=== PATIENT | female | born 1995 | race Caucasian/White ===

== ENCOUNTER 2017-10-14 19:18 | Inpatient (IN) | payer OTHER, MEDICAID ==
[~2017-10-14] VITALS: Ht 160 cm; Wt 54.4 kg
[2017-10-14] MEDS ORDERED: MORPHINE SULFATE 4 MG/ML CPJ (NOT FOR IM USE) IV STA (23:26)
[2017-10-14] MEDS ORDERED: SODIUM CHLORIDE 0.9% 1,000 ML IV ONE (23:26)
[2017-10-14] MEDS ORDERED: FAMOTIDINE 20MG/2ML VIAL IV STA (23:26)
[2017-10-14] MEDS ORDERED: PANTOPRAZOLE SODIUM 40 MG/VIAL IV STA (23:26)
[2017-10-14] MEDS ORDERED: ONDANSETRON HCL 4MG/2ML VIAL IV STA (23:26)
[2017-10-14] MEDS ORDERED: OCTREOTIDE ACETATE 50 MCG/ML 1ML IV ONE (23:30)
[2017-10-14 23:44] LABS: BASOPHILS % 1.1 % (0.0-2.0); EOSINOPHILS % 0.2 % (0.0-5.0); HEMOGLOBIN. 11.7 g/dL (12.0-16.0); MEAN CORPUSCULAR HEMOGLOBIN 27.8 pg (28.0-32.0); MEAN CORPUSCULAR VOLUME 83.1 fL (81.0-99.0); MEAN PLATELET VOLUME 7.3 fl (7.4-10.4); MONOCYTES % 13.4 % (2.0-8.0); NEUTROPHILS % 53.3 % (40.0-76.0); PLATELET 308 x1000/uL (130-400); RED BLOOD CELL COUNT 4.22 mill/uL (4.2-5.4); RED CELL DISTRIBUTION WIDTH 15.2 % (11.6-14.6)
[2017-10-14 23:49] LABS: INR 1.3; PROTHROMBIN TIME 13.1 sec (9.4-11.6)
[2017-10-15 00:06] LABS: CARBON DIOXIDE 26 mEq/L (21-32); CHLORIDE 99 mEq/L (98-107); ETHANOL BLOOD < 10 mg/dL
[2017-10-15 00:07] LABS: CLARITY URINE CLOUDY (CLEAR); COLOR URINE DARK YELLOW (YELLOW); KETONES URINE TRACE (NEGATIVE); LEUKOCYTE ESTERASE URINE 1+ (NEGATIVE); NITRITE URINE NEGATIVE (NEGATIVE); OCCULT BLOOD URINE 1+ (NEGATIVE); PH URINE 5.5 (4.5-8.0); PROTEIN URINE 2+ (NEGATIVE); SPECIFIC GRAVITY URINE 1.034 (1.005-1.030)
[2017-10-15 00:40] LABS: *AMPHETAMINES SCREEN URINE NEGATIVE (NEGATIVE); *BARBITURATES SCREEN URINE NEGATIVE (NEGATIVE); *BENZODIAZEPINES SCREEN URINE NEGATIVE (NEGATIVE); *COCAINE SCREEN URINE NEGATIVE (NEGATIVE); CANNABINOID URINE SCREEN NEGATIVE (NEGATIVE); METHADONE URINE SCREEN NEGATIVE (NEGATIVE); OPIATES URINE SCREEN NEGATIVE (NEGATIVE); PHENCYCLIDINE URINE SCREEN NEGATIVE (NEGATIVE)
[2017-10-15] MEDS ORDERED: ACETAMINOPHEN 325MG TABLET PO NR (02:13)
[2017-10-15] MEDS ORDERED: METRONIDAZOLE 500 MG PREMIX 100 ML IV NR (02:15)
[2017-10-15] MEDS ORDERED: SODIUM CHLORIDE 0.9% 1000ML BAG (SEPSIS BOLUS) IV NR (02:15)
[2017-10-15] MEDS ORDERED: LEVOFLOXACIN 750MG PREMIX 150 ML IV NR (02:15)
[2017-10-15] MEDS ORDERED: MORPHINE SULFATE 2 MG/ML CPJ (NOT FOR IM USE) IV STA ×2 (06:32→06:43)
[2017-10-15] MEDS ORDERED: ONDANSETRON HCL 4MG/2ML VIAL IV STA (06:43)
[2017-10-15] MEDS ORDERED: DIPHENHYDRAMINE 50MG/ML VIAL IV STA (06:43)
[2017-10-15] MEDS ORDERED: CLONIDINE 0.1MG TABLET PO PRN (09:15)
[2017-10-15] MEDS ORDERED: ONDANSETRON HCL 4MG/2ML VIAL IV PRN (09:15)
[2017-10-15] MEDS ORDERED: ACETAMINOPHEN 325MG TABLET PO PRN (09:15)
[2017-10-15] MEDS ORDERED: LORAZEPAM 2MG/ML CPJ IV PRN (09:15)
[2017-10-15] MEDS ORDERED: MAGNESIUM/ALUMINUM HYDROXIDE/SIMETHICONE 30ML UDC PO PRN (09:15)
[2017-10-15 10:00] VITALS: BP_SYST 98; BP_DIAS 53; BP_DIAS 60
[2017-10-15] MEDS ORDERED: PRED10TA23 PO (10:14)
[2017-10-15] MEDS ORDERED: ENOXAPARIN 40MG/0.4ML SYR SUBCUT SCH (10:15)
[2017-10-15] MEDS ORDERED: METHYLPREDNISOLONE SOD SUCC 40 MG/ML VIAL IV SCH (10:30)
[2017-10-15] MEDS: HYDROMORPHONE HCL/PF 2MG/ML CPJ IV PRN ×3 (10:55→20:06)
[2017-10-15 12:00] VITALS: BP 106/61
[2017-10-15] MEDS: DEXT 5%/0.45% NACL KCL 20MEQ/L 1,000 ML IV SCH (12:28)
[2017-10-15] MEDS: MESALAMINE 400 MG CAPSULE.DR PO SCH ×2 (12:29→22:33)
[2017-10-15 16:51] VITALS: BP 107/66
[2017-10-15 19:50] LABS: CLARITY URINE CLEAR (CLEAR); COLOR URINE YELLOW (YELLOW); KETONES URINE NEGATIVE (NEGATIVE); LEUKOCYTE ESTERASE URINE 2+ (NEGATIVE); NITRITE URINE NEGATIVE (NEGATIVE); OCCULT BLOOD URINE NEGATIVE (NEGATIVE); PH URINE 5.5 (4.5-8.0); PROTEIN URINE NEGATIVE (NEGATIVE); SPECIFIC GRAVITY URINE 1.013 (1.005-1.030); UROBILINOGEN URINE 0.2 E.U./dL (0.2-1.0)
[2017-10-15 20:00] VITALS: BP 102/58
[2017-10-15 20:44] LABS: *AMPHETAMINES SCREEN URINE NEGATIVE (NEGATIVE); *BARBITURATES SCREEN URINE NEGATIVE (NEGATIVE); *BENZODIAZEPINES SCREEN URINE NEGATIVE (NEGATIVE); *COCAINE SCREEN URINE NEGATIVE (NEGATIVE); CANNABINOID URINE SCREEN NEGATIVE (NEGATIVE); METHADONE URINE SCREEN NEGATIVE (NEGATIVE); PHENCYCLIDINE URINE SCREEN NEGATIVE (NEGATIVE)
[2017-10-15 20:49] LABS: OPIATES URINE SCREEN PRESUMTIVE POSITIVE (NEGATIVE)
[2017-10-15] MEDS: METHYLPREDNISOLONE SOD SUCC 40 MG/ML VIAL IV SCH (22:32)
[2017-10-15] MEDS ORDERED: LEVOFLOXACIN 500MG PREMIX 100 ML IV SCH (23:00)
[2017-10-16] VITALS: BP 105/58
[2017-10-16] MEDS: HYDROMORPHONE HCL/PF 2MG/ML CPJ IV PRN ×3 (00:15→08:19)
[2017-10-16] MEDS: DEXT 5%/0.45% NACL KCL 20MEQ/L 1,000 ML IV SCH (00:17)
[2017-10-16 04:00] VITALS: BP 118/76
[2017-10-16] MEDS: MESALAMINE 400 MG CAPSULE.DR PO SCH (05:29)
[2017-10-16] MEDS: METHYLPREDNISOLONE SOD SUCC 40 MG/ML VIAL IV SCH (05:29)
[2017-10-16 06:54] LABS: BASOPHILS % 0.1 % (0.0-2.0); HEMOGLOBIN. 11.8 g/dL (12.0-16.0); LYMPHOCYTES % 13.3 % (20.0-50.0); MEAN CORPUSCULAR HEMOGLOBIN 28.5 pg (28.0-32.0); MEAN CORPUSCULAR VOLUME 84.6 fL (81.0-99.0); MEAN PLATELET VOLUME 7.8 fl (7.4-10.4); MONOCYTES % 4.4 % (2.0-8.0); NEUTROPHILS % 82.2 % (40.0-76.0); PLATELET 332 x1000/uL (130-400); RED BLOOD CELL COUNT 4.13 mill/uL (4.2-5.4); RED CELL DISTRIBUTION WIDTH 15.3 % (11.6-14.6)
[2017-10-16 07:56] LABS: CARBON DIOXIDE 27 mEq/L (21-32); CHLORIDE 101 mEq/L (98-107)
[2017-10-16 08:00] VITALS: BP 114/70
[2017-10-16] MEDS ORDERED: PANTOPRAZOLE SODIUM 40 MG/VIAL IV SCH (09:00)
[2017-10-16 11:19] VITALS: BP 117/78
[2017-10-16 11:26] VITALS: BP 116/74
== END 2017-10-16 13:35 | disposition home or self-care (01) | DRG 386 ==
LOC: ER 20:18 → 8WST 10-15 02:19 → EDBEDREQSVC 10-15 03:55 → EDBEDREQTM 10-15 03:55 → EDBEDREQ 10-15 03:55 → ENRESERV 10-15 07:00 → CANBEDREQ 10-15 09:02
PROVIDERS: ADMIT Internal Medicine Geriatric Medicine; ATTEND Internal Medicine Geriatric Medicine
DX: K51.00 Ulcerative (chronic) pancolitis without complications (principal); E87.1 Hypo-osmolality and hyponatremia; N39.0 Urinary tract infection, site not specified; K92.2 Gastrointestinal hemorrhage, unspecified; D64.9 Anemia, unspecified
CPT/HCPCS: 36415; 74176; 80053; 80305; 81001; 81003; 83605; 83690; 85025; 85610; 85651; 86141; 87040; 87086; 96361; 96365; 96366; 96375; 96376; 99285; C9113; G0482; J1170; J1200; J1650; J1956; J2270; J2354; J2405; J2920; J3490; J7030

== ENCOUNTER 2017-11-01 12:38 | Inpatient (IN) | payer OTHER, MEDICAID ==
[~2017-11-01] VITALS: Ht 162.6 cm; Wt 59.0 kg
[~2017-11-01 12:38] MED LIST: PRED10TA23 PO
[2017-11-01] MEDS ORDERED: MORPHINE SULFATE 4 MG/ML CPJ (NOT FOR IM USE) IV STA (17:13)
[2017-11-01] MEDS ORDERED: SODIUM CHLORIDE 0.9% 1,000 ML IV ONE (17:13)
[2017-11-01] MEDS ORDERED: ONDANSETRON HCL 4MG/2ML VIAL IV STA (17:13)
[2017-11-01 17:55] LABS: HCG SCREEN NEGATIVE
[2017-11-01 17:58] LABS: EOSINOPHILS % 1.1 % (0.0-5.0); HEMATOCRIT. 33.8 % (36.0-48.0); HEMOGLOBIN. 11.2 g/dL (12.0-16.0); LYMPHOCYTES % 17.7 % (20.0-50.0); MEAN CORPUSCULAR VOLUME 84.1 fL (81.0-99.0); MEAN PLATELET VOLUME 7.1 fl (7.4-10.4); MONOCYTES % 7.1 % (2.0-8.0); NEUTROPHILS % 73.1 % (40.0-76.0); PLATELET 463 x1000/uL (130-400); RED BLOOD CELL COUNT 4.02 mill/uL (4.2-5.4); RED CELL DISTRIBUTION WIDTH 16.6 % (11.6-14.6)
[2017-11-01 18:01] LABS: CARBON DIOXIDE 33 mEq/L (21-32); CHLORIDE 102 mEq/L (98-107)
[2017-11-01 19:20] LABS: CLARITY URINE TURBID (CLEAR); COLOR URINE ORANGE (YELLOW); KETONES URINE NEGATIVE (NEGATIVE); LEUKOCYTE ESTERASE URINE NEGATIVE (NEGATIVE); NITRITE URINE NEGATIVE (NEGATIVE); OCCULT BLOOD URINE 1+ (NEGATIVE); PROTEIN URINE TRACE (NEGATIVE); SPECIFIC GRAVITY URINE 1.028 (1.005-1.030)
[2017-11-01] MEDS ORDERED: IOHEXOL-300 100 ML BOTTLE ONE (21:05)
[2017-11-01] MEDS ORDERED: MORPHINE SULFATE 4 MG/ML CPJ (NOT FOR IM USE) IV ONE (22:00)
[2017-11-01] MEDS ORDERED: ONDANSETRON HCL 4MG/2ML VIAL IV ONE (22:00)
[2017-11-01] MEDS ORDERED: CEFTRIAXONE 1 G PREMIX 50 ML IV ONE (22:15)
[2017-11-02] VITALS (8 sets, daily range): BP systolic 88–121; BP diastolic 44–79
[2017-11-02] MEDS ORDERED: ONDANSETRON HCL 4MG/2ML VIAL IV PRN (05:45)
[2017-11-02] MEDS ORDERED: ACETAMINOPHEN 325MG TABLET PO PRN (06:00)
[2017-11-02] MEDS ORDERED: POTASSIUM CHLORIDE 20MEQ TABLET SR PO NR (06:00)
[2017-11-02] MEDS: MESALAMINE 400 MG CAPSULE.DR PO SCH ×3 (06:56→18:16)
[2017-11-02] MEDS: DEXT 5%/0.45% NACL 1000ML 1,000 ML IV SCH (06:56)
[2017-11-02] MEDS ORDERED: SODIUM CHLORIDE 0.9% 500 ML IV ONE (09:11)
[2017-11-02] MEDS: PANTOPRAZOLE SODIUM 40 MG/VIAL IV SCH (09:59)
[2017-11-02] MEDS: METRONIDAZOLE 500 MG PREMIX 100 ML IV SCH ×3 (11:34→23:08)
[2017-11-02] MEDS: LEVOFLOXACIN 500MG PREMIX 100 ML IV SCH (12:36)
[2017-11-02] MEDS: HYDROMORPHONE HCL/PF 2MG/ML CPJ IV PRN ×3 (14:48→23:04)
[2017-11-02] MEDS: METHYLPREDNISOLONE SOD SUCC 40 MG/ML VIAL IV SCH ×2 (16:38→23:08)
[2017-11-03] MEDS: HYDROMORPHONE HCL/PF 2MG/ML CPJ IV PRN ×4 (01:52→20:12)
[2017-11-03 04:00] VITALS: BP 95/48
[2017-11-03] MEDS: DEXT 5%/0.45% NACL 1000ML 1,000 ML IV SCH ×3 (05:14→21:15)
[2017-11-03 06:19] LABS: HEMATOCRIT. 30.1 % (36.0-48.0); MEAN CORPUSCULAR HEMOGLOBIN 28.1 pg (28.0-32.0); MEAN CORPUSCULAR VOLUME 84.7 fL (81.0-99.0); MEAN PLATELET VOLUME 7.7 fl (7.4-10.4); PLATELET 347 x1000/uL (130-400); RED BLOOD CELL COUNT 3.56 mill/uL (4.2-5.4); RED CELL DISTRIBUTION WIDTH 15.6 % (11.6-14.6)
[2017-11-03 06:50] LABS: CARBON DIOXIDE 25 mEq/L (21-32); CHLORIDE 103 mEq/L (98-107)
[2017-11-03 08:00] VITALS: BP 115/73
[2017-11-03] MEDS: METRONIDAZOLE 500 MG PREMIX 100 ML IV SCH ×2 (08:14→16:35)
[2017-11-03] MEDS: PANTOPRAZOLE SODIUM 40 MG/VIAL IV SCH (08:15)
[2017-11-03] MEDS: METHYLPREDNISOLONE SOD SUCC 40 MG/ML VIAL IV SCH ×2 (08:15→16:33)
[2017-11-03] MEDS: MESALAMINE 400 MG CAPSULE.DR PO SCH ×3 (08:22→16:34)
[2017-11-03] MEDS: LEVOFLOXACIN 500MG PREMIX 100 ML IV SCH (09:45)
[2017-11-03 09:58] LABS: PLATELET ESTIMATE NORMAL
[2017-11-03 12:00] VITALS: BP 101/61
[2017-11-03] MEDS ORDERED: TRAMADOL 50MG TABLET PO PRN (15:00)
[2017-11-03 16:00] VITALS: BP 102/62
[2017-11-03 20:00] VITALS: BP 112/52
[2017-11-04] VITALS: BP 108/59
[2017-11-04] MEDS: METHYLPREDNISOLONE SOD SUCC 40 MG/ML VIAL IV SCH ×2 (00:08→10:24)
[2017-11-04] MEDS: METRONIDAZOLE 500 MG PREMIX 100 ML IV SCH ×2 (00:08→10:24)
[2017-11-04 04:00] VITALS: BP 114/73
[2017-11-04] MEDS: DEXT 5%/0.45% NACL 1000ML 1,000 ML IV SCH (04:00)
[2017-11-04] MEDS: HYDROMORPHONE HCL/PF 2MG/ML CPJ IV PRN ×2 (04:08→11:32)
[2017-11-04 08:00] VITALS: BP 106/63
[2017-11-04] MEDS: MESALAMINE 400 MG CAPSULE.DR PO SCH (10:25)
[2017-11-04] MEDS: PANTOPRAZOLE SODIUM 40 MG/VIAL IV SCH (10:25)
[2017-11-04] MEDS: LEVOFLOXACIN 500MG PREMIX 100 ML IV SCH (10:25)
[2017-11-04 12:00] VITALS: BP 102/55
[2017-11-04 13:16] VITALS: BP 18/102
== END 2017-11-04 13:53 | disposition home or self-care (01) | DRG 387 ==
LOC: ER 15:02 → 6EST 22:06 → EDBEDREQ 22:32 → ENRESERV 11-02 00:49
PROVIDERS: ADMIT Hospitalist; ATTEND Hospitalist
DX: K51.90 Ulcerative colitis, unspecified, without complications (principal); E88.09 Other disorders of plasma-protein metabolism, not elsewhere classified; K76.0 Fatty (change of) liver, not elsewhere classified; E87.6 Hypokalemia; R74.0 Nonspecific elevation of levels of transaminase and lactic acid dehydrogenase [LDH]; K83.8 Other specified diseases of biliary tract
CPT/HCPCS: 36415; 74177; 74181; 76700; 80053; 81001; 83690; 84703; 85025; 86301; 96365; 96375; 99285; C1893; C9113; J0696; J1170; J1956; J2270; J2405; J2920; J3490; J7030; J7040; Q9967

== ENCOUNTER 2017-11-29 19:16 | Inpatient (IN) | payer OTHER, MEDICAID ==
[~2017-11-29] VITALS: Ht 162.6 cm; Wt 59.0 kg
[2017-11-29] MEDS ORDERED: LEVOFLOXACIN 750MG PREMIX 150 ML IV ONE (23:15)
[2017-11-29] MEDS ORDERED: METRONIDAZOLE 500 MG PREMIX 100 ML IV ONE (23:15)
[2017-11-29] MEDS ORDERED: SODIUM CHLORIDE 0.9% 1000ML BAG (SEPSIS BOLUS) IV ONE (23:15)
[2017-11-29] MEDS ORDERED: KETOROLAC 30MG/ML VIAL IV ONE (23:30)
[2017-11-29] MEDS ORDERED: ONDANSETRON HCL 4MG/2ML VIAL IM ONE (23:30)
[2017-11-30 00:40] LABS: BASOPHILS % 1.3 % (0.0-2.0); EOSINOPHILS % 1.9 % (0.0-5.0); HEMATOCRIT. 29.8 % (36.0-48.0); HEMOGLOBIN. 9.7 g/dL (12.0-16.0); MEAN CORPUSCULAR HEMOGLOBIN 27.2 pg (28.0-32.0); MEAN CORPUSCULAR VOLUME 83.6 fL (81.0-99.0); MEAN PLATELET VOLUME 7.3 fl (7.4-10.4); MONOCYTES % 13.1 % (2.0-8.0); NEUTROPHILS % 49.7 % (40.0-76.0); PLATELET 376 x1000/uL (130-400); RED BLOOD CELL COUNT 3.56 mill/uL (4.2-5.4); RED CELL DISTRIBUTION WIDTH 16.9 % (11.6-14.6)
[2017-11-30 00:43] LABS: CHLORIDE 108 mEq/L (98-107)
[2017-11-30 00:44] LABS: INR 1.1; PROTHROMBIN TIME 11.1 sec (9.4-11.6)
[2017-11-30 00:51] LABS: CARBON DIOXIDE 28 mEq/L (21-32); ETHANOL BLOOD < 10 mg/dL
[2017-11-30] MEDS ORDERED: MORPHINE SULFATE 4 MG/ML CPJ (NOT FOR IM USE) IV NR (01:00)
[2017-11-30 01:30] LABS: CLARITY URINE TURBID (CLEAR); COLOR URINE YELLOW (YELLOW); KETONES URINE NEGATIVE (NEGATIVE); LEUKOCYTE ESTERASE URINE 2+ (NEGATIVE); NITRITE URINE NEGATIVE (NEGATIVE); OCCULT BLOOD URINE TRACE (NEGATIVE); PROTEIN URINE NEGATIVE (NEGATIVE); SPECIFIC GRAVITY URINE 1.029 (1.005-1.030); UROBILINOGEN URINE 0.2 E.U./dL (0.2-1.0)
[2017-11-30 01:58] LABS: *AMPHETAMINES SCREEN URINE NEGATIVE (NEGATIVE); *BARBITURATES SCREEN URINE NEGATIVE (NEGATIVE); *BENZODIAZEPINES SCREEN URINE NEGATIVE (NEGATIVE); *COCAINE SCREEN URINE NEGATIVE (NEGATIVE); CANNABINOID URINE SCREEN NEGATIVE (NEGATIVE); METHADONE URINE SCREEN NEGATIVE (NEGATIVE); OPIATES URINE SCREEN NEGATIVE (NEGATIVE); PHENCYCLIDINE URINE SCREEN NEGATIVE (NEGATIVE)
[2017-11-30] MEDS ORDERED: SODIUM CHLORIDE 0.9% 1,000 ML IV SCH (02:27)
[2017-11-30] MEDS ORDERED: MAGNESIUM/ALUMINUM HYDROXIDE/SIMETHICONE 30ML UDC PO ONE (04:30)
[2017-11-30] MEDS ORDERED: MORPHINE SULFATE 2 MG/ML CPJ (NOT FOR IM USE) IV ONE (04:30)
[2017-11-30] MEDS ORDERED: FAMOTIDINE 20MG/2ML VIAL IV ONE (04:30)
[2017-11-30 10:30] VITALS: BP_SYST 107; BP_DIAS 64; BP_DIAS 67
[2017-11-30] MEDS ORDERED: ACETAMINOPHEN 325MG TABLET PO PRN (13:15)
[2017-11-30] MEDS ORDERED: IPRATROPIUM/ALBUTEROL 0.5-3(2.5)MG/3ML NEB INH PRN (13:15)
[2017-11-30] MEDS ORDERED: ONDANSETRON HCL 4MG/2ML VIAL IV PRN (13:15)
[2017-11-30] MEDS ORDERED: CLONIDINE 0.1MG TABLET PO PRN (13:15)
[2017-11-30] MEDS ORDERED: HYDROCODONE/ACETAMINOPHEN 5/325MG TABLET PO PRN (13:15)
[2017-11-30] MEDS: MORPHINE SULFATE 2 MG/ML CPJ (NOT FOR IM USE) IV PRN ×3 (14:10→22:08)
[2017-11-30 16:00] VITALS: BP 101/67
[2017-11-30] MEDS: METHYLPREDNISOLONE SOD SUCC 40 MG/ML VIAL IV SCH ×2 (17:29→23:36)
[2017-11-30] MEDS: MESALAMINE 400 MG CAPSULE.DR PO SCH (17:29)
[2017-11-30 20:00] VITALS: BP 123/60
[2017-12-01 00:04] VITALS: BP 114/48
[2017-12-01] MEDS: MORPHINE SULFATE 2 MG/ML CPJ (NOT FOR IM USE) IV PRN ×5 (01:59→22:55)
[2017-12-01 04:13] VITALS: BP 113/63
[2017-12-01 07:20] LABS: BASOPHILS % 0.1 % (0.0-2.0); HEMATOCRIT. 31.4 % (36.0-48.0); HEMOGLOBIN. 10.5 g/dL (12.0-16.0); LYMPHOCYTES % 11.4 % (20.0-50.0); MEAN CORPUSCULAR HEMOGLOBIN 28.4 pg (28.0-32.0); MEAN CORPUSCULAR VOLUME 84.6 fL (81.0-99.0); MEAN PLATELET VOLUME 7.7 fl (7.4-10.4); MONOCYTES % 1.3 % (2.0-8.0); NEUTROPHILS % 87.2 % (40.0-76.0); PLATELET 424 x1000/uL (130-400); RED BLOOD CELL COUNT 3.71 mill/uL (4.2-5.4); RED CELL DISTRIBUTION WIDTH 16.5 % (11.6-14.6)
[2017-12-01 07:40] LABS: CHLORIDE 104 mEq/L (98-107); LDL CHOLESTEROL 69 mg/dL (5-100)
[2017-12-01 07:41] LABS: HDL CHOLESTEROL 56 mg/dL (40-59)
[2017-12-01 07:42] VITALS: BP 98/56
[2017-12-01] MEDS: METHYLPREDNISOLONE SOD SUCC 40 MG/ML VIAL IV SCH ×3 (08:00→22:54)
[2017-12-01] MEDS: MESALAMINE 400 MG CAPSULE.DR PO SCH ×3 (09:00→16:47)
[2017-12-01 09:17] LABS: CARBON DIOXIDE 28 mEq/L (21-32)
[2017-12-01] MEDS ORDERED: LEVOFLOXACIN 500MG PREMIX 100 ML IV SCH (11:30)
[2017-12-01 12:05] VITALS: BP 107/65
[2017-12-01] MEDS ORDERED: SODIUM CHLORIDE 0.9% 10ML VIAL ONE (14:25)
[2017-12-01 15:44] VITALS: BP 110/68
[2017-12-01 20:28] VITALS: BP 110/64
[2017-12-02] VITALS: BP 106/57
[2017-12-02] MEDS: MORPHINE SULFATE 2 MG/ML CPJ (NOT FOR IM USE) IV PRN (03:04)
[2017-12-02 04:00] VITALS: BP 110/64
[2017-12-02 06:27] LABS: BASOPHILS % 0.2 % (0.0-2.0); HEMATOCRIT. 31.3 % (36.0-48.0); HEMOGLOBIN. 10.3 g/dL (12.0-16.0); LYMPHOCYTES % 7.8 % (20.0-50.0); MEAN CORPUSCULAR HEMOGLOBIN 27.2 pg (28.0-32.0); MEAN PLATELET VOLUME 7.6 fl (7.4-10.4); MONOCYTES % 2.4 % (2.0-8.0); NEUTROPHILS % 89.6 % (40.0-76.0); PLATELET 450 x1000/uL (130-400); RED BLOOD CELL COUNT 3.77 mill/uL (4.2-5.4); RED CELL DISTRIBUTION WIDTH 16.4 % (11.6-14.6)
[2017-12-02 07:37] VITALS: BP 111/65
[2017-12-02 08:18] LABS: CHLORIDE 104 mEq/L (98-107)
[2017-12-02 08:36] LABS: CARBON DIOXIDE 25 mEq/L (21-32)
[2017-12-02] MEDS: METHYLPREDNISOLONE SOD SUCC 40 MG/ML VIAL IV SCH (08:39)
[2017-12-02] MEDS: MESALAMINE 400 MG CAPSULE.DR PO SCH (08:39)
[2017-12-02 10:51] VITALS: BP 111/61
== END 2017-12-02 11:35 | disposition home or self-care (01) | DRG 445 ==
LOC: ER 20:46 → 8WST 11-30 02:27 → EDBEDREQ 11-30 02:29 → EDBEDREQSVC 11-30 02:29 → ENRESERV 11-30 06:59
PROVIDERS: ADMIT Internal Medicine; ATTEND Internal Medicine
DX: K80.20 Calculus of gallbladder without cholecystitis without obstruction (principal); K51.911 Ulcerative colitis, unspecified with rectal bleeding; N39.0 Urinary tract infection, site not specified; D64.9 Anemia, unspecified; R74.0 Nonspecific elevation of levels of transaminase and lactic acid dehydrogenase [LDH]
CPT/HCPCS: 36415; 71045; 74181; 76705; 78227; 80048; 80053; 80061; 80076; 80305; 81001; 82270; 83605; 83690; 85025; 85610; 87015; 87040; 87045; 87077; 87086; 87186; 87427; 87449; 93005; 96365; 96366; 96368; 96372; 96375; 96376; 99285; A4216; A9537; G0482; J1885; J1956; J2270; J2405; J2920; J3490; J7030

== ENCOUNTER 2017-12-18 19:27 | Emergency (ER) | payer OTHER, MEDICAID ==
[~2017-12-18] VITALS: Ht 162.6 cm; Wt 64.0 kg
== END 2017-12-18 23:39 | disposition left against medical advice (07) ==
LOC: ER 22:39
DX: Z53.21 Procedure and treatment not carried out due to patient leaving prior to being seen by health care provider (principal)

== ENCOUNTER 2017-12-19 00:56 | Emergency (ER) | payer OTHER, MEDICAID ==
[~2017-12-19] VITALS: Ht 162.6 cm; Wt 64.0 kg
[2017-12-19 01:02] VITALS: BP 123/71
== END 2017-12-19 03:30 | disposition left against medical advice (07) ==
LOC: ER 01:26
DX: R10.9 Unspecified abdominal pain (principal); R19.7 Diarrhea, unspecified; Z53.21 Procedure and treatment not carried out due to patient leaving prior to being seen by health care provider

== ENCOUNTER 2017-12-21 19:30 | Inpatient (IN) | payer OTHER, MEDICAID ==
[~2017-12-21] VITALS: Ht 153.4 cm; Wt 63.5 kg
[2017-12-21 23:34] LABS: CLARITY URINE CLEAR (CLEAR); COLOR URINE YELLOW (YELLOW); KETONES URINE NEGATIVE (NEGATIVE); LEUKOCYTE ESTERASE URINE TRACE (NEGATIVE); NITRITE URINE NEGATIVE (NEGATIVE); OCCULT BLOOD URINE 3+ (NEGATIVE); PROTEIN URINE NEGATIVE (NEGATIVE); SPECIFIC GRAVITY URINE 1.024 (1.005-1.030); UROBILINOGEN URINE 0.2 E.U./dL (0.2-1.0)
[2017-12-21] MEDS ORDERED: SODIUM CHLORIDE 0.9% 1,000 ML IV ONE (23:52)
[2017-12-21] MEDS ORDERED: FAMOTIDINE 20MG/2ML VIAL IV STA (23:52)
[2017-12-21] MEDS ORDERED: ONDANSETRON HCL 4MG/2ML VIAL IV STA (23:52)
[2017-12-22 00:29] LABS: EOSINOPHILS % 2.2 % (0.0-5.0); HEMATOCRIT. 30.9 % (36.0-48.0); HEMOGLOBIN. 10.1 g/dL (12.0-16.0); LYMPHOCYTES % 31.5 % (20.0-50.0); MEAN CORPUSCULAR HEMOGLOBIN 27.3 pg (28.0-32.0); MEAN CORPUSCULAR VOLUME 83.5 fL (81.0-99.0); MEAN PLATELET VOLUME 7.2 fl (7.4-10.4); MONOCYTES % 12.9 % (2.0-8.0); NEUTROPHILS % 52.4 % (40.0-76.0); PLATELET 464 x1000/uL (130-400); RED CELL DISTRIBUTION WIDTH 16.5 % (11.6-14.6)
[2017-12-22 00:37] LABS: CHLORIDE 106 mEq/L (98-107)
[2017-12-22] MEDS ORDERED: MORPHINE SULFATE 2 MG/ML CPJ (NOT FOR IM USE) IV ONE (01:00)
[2017-12-22] MEDS ORDERED: MORPHINE SULFATE 4 MG/ML CPJ (NOT FOR IM USE) IV ONE ×3 (01:15→05:30)
[2017-12-22] MEDS ORDERED: MORPHINE SULFATE 4 MG/ML CPJ (NOT FOR IM USE) IV SCH (01:15)
[2017-12-22] MEDS ORDERED: ONDANSETRON HCL 4MG/2ML VIAL IV ONE ×2 (04:15→05:30)
[2017-12-22 08:45] VITALS: BP 101/70
[2017-12-22] MEDS ORDERED: CLONIDINE 0.1MG TABLET PO PRN (08:45)
[2017-12-22] MEDS ORDERED: IPRATROPIUM/ALBUTEROL 0.5-3(2.5)MG/3ML NEB INH PRN (08:45)
[2017-12-22] MEDS ORDERED: NA PHOS,M-B/NA PHOS,DI-BA ENEMA 118ML PR PRN (08:45)
[2017-12-22] MEDS ORDERED: TRAMADOL 50MG TABLET PO PRN (08:45)
[2017-12-22] MEDS ORDERED: ACETAMINOPHEN 325MG TABLET PO PRN (08:45)
[2017-12-22] MEDS ORDERED: ONDANSETRON HCL 4MG/2ML VIAL IV PRN (08:45)
[2017-12-22] MEDS ORDERED: DIPHENHYDRAMINE 50MG/ML VIAL IV PRN (08:45)
[2017-12-22] MEDS ORDERED: DOCUSATE SODIUM 100MG CAPSULE PO PRN (08:45)
[2017-12-22] MEDS ORDERED: MORPHINE SULFATE 2 MG/ML CPJ (NOT FOR IM USE) IV PRN (08:45)
[2017-12-22] MEDS ORDERED: LORAZEPAM 0.5MG TABLET PO PRN (08:45)
[2017-12-22] MEDS ORDERED: MAGNESIUM/ALUMINUM HYDROXIDE/SIMETHICONE 30ML UDC PO PRN (08:45)
[2017-12-22] MEDS ORDERED: ZOLPIDEM TARTRATE 5MG TABLET PO PRN (08:45)
[2017-12-22] MEDS ORDERED: GUAIFENESIN 200MG/10ML SUGAR FREE UDC PO PRN (08:45)
[2017-12-22] MEDS ORDERED: NITROGLYCERIN 0.4MG TABLET SL SL PRN (08:45)
[2017-12-22] MEDS ORDERED: KETOROLAC 15MG/ML VIAL IV PRN (08:45)
[2017-12-22] MEDS ORDERED: P20 PO (09:12)
[2017-12-22] MEDS: FAMOTIDINE 20MG/2ML VIAL IV SCH ×2 (09:37→21:14)
[2017-12-22] MEDS: DEXT 5%/0.45% NACL 1000ML 1,000 ML IV SCH (09:37)
[2017-12-22 09:44] VITALS: BP 101/70
[2017-12-22] MEDS: PIPERACILLIN/TAZ 3.375G PREMIX 50 ML IV SCH ×2 (10:36→18:14)
[2017-12-22] MEDS: ENOXAPARIN 40MG/0.4ML SYR SUBCUT SCH (10:37)
[2017-12-22 12:00] VITALS: BP 100/65
[2017-12-22] MEDS: MORPHINE SULFATE 4 MG/ML CPJ (NOT FOR IM USE) IV PRN (15:53)
[2017-12-22 16:00] VITALS: BP 107/62
[2017-12-22 20:00] VITALS: BP 91/44
[2017-12-22 20:30] VITALS: BP 95/57
[2017-12-23] VITALS (7 sets, daily range): BP systolic 87–111; BP diastolic 44–73
[2017-12-23] MEDS: MORPHINE SULFATE 4 MG/ML CPJ (NOT FOR IM USE) IV PRN ×3 (01:01→20:38)
[2017-12-23] MEDS: PIPERACILLIN/TAZ 3.375G PREMIX 50 ML IV SCH ×3 (02:43→22:06)
[2017-12-23] MEDS: ENOXAPARIN 40MG/0.4ML SYR SUBCUT SCH (09:00)
[2017-12-23] MEDS: FAMOTIDINE 20MG/2ML VIAL IV SCH ×2 (09:00→20:23)
[2017-12-23 09:58] LABS: *AMPHETAMINES SCREEN URINE NEGATIVE (NEGATIVE); *BARBITURATES SCREEN URINE NEGATIVE (NEGATIVE); *COCAINE SCREEN URINE NEGATIVE (NEGATIVE)
[2017-12-23 10:02] LABS: *BENZODIAZEPINES SCREEN URINE NEGATIVE (NEGATIVE); CANNABINOID URINE SCREEN NEGATIVE (NEGATIVE); METHADONE URINE SCREEN NEGATIVE (NEGATIVE); OPIATES URINE SCREEN NEGATIVE (NEGATIVE); PHENCYCLIDINE URINE SCREEN NEGATIVE (NEGATIVE)
[2017-12-23 14:34] LABS: BASOPHILS % 1.8 % (0.0-2.0); EOSINOPHILS % 3.4 % (0.0-5.0); HEMATOCRIT. 30.7 % (36.0-48.0); HEMOGLOBIN. 10.4 g/dL (12.0-16.0); LYMPHOCYTES % 36.3 % (20.0-50.0); MEAN CORPUSCULAR HEMOGLOBIN 27.9 pg (28.0-32.0); MEAN CORPUSCULAR VOLUME 82.6 fL (81.0-99.0); MONOCYTES % 13.5 % (2.0-8.0); PLATELET 444 x1000/uL (130-400); RED BLOOD CELL COUNT 3.72 mill/uL (4.2-5.4)
[2017-12-23 14:51] LABS: CHLORIDE 105 mEq/L (98-107)
[2017-12-23] MEDS ORDERED: KETOROLAC 15MG/ML VIAL IV PRN (18:45)
[2017-12-23] MEDS ORDERED: POTASSIUM CHLORIDE 20MEQ/PACKET PO NR (19:00)
[2017-12-23] MEDS: DEXT 5%/0.45% NACL 1000ML 1,000 ML IV SCH (22:17)
[2017-12-24] VITALS: BP 95/55
[2017-12-24] MEDS: MORPHINE SULFATE 4 MG/ML CPJ (NOT FOR IM USE) IV PRN ×4 (01:10→20:31)
[2017-12-24] MEDS: PIPERACILLIN/TAZ 3.375G PREMIX 50 ML IV SCH ×3 (03:25→20:30)
[2017-12-24 04:00] VITALS: BP 99/67
[2017-12-24 08:00] VITALS: BP 82/49
[2017-12-24] MEDS: ENOXAPARIN 40MG/0.4ML SYR SUBCUT SCH (08:32)
[2017-12-24] MEDS: FAMOTIDINE 20MG/2ML VIAL IV SCH ×2 (08:33→20:31)
[2017-12-24 12:00] VITALS: BP 113/67
[2017-12-24] MEDS: PREDNISONE 20MG TABLET PO SCH (13:23)
[2017-12-24 15:42] LABS: HEMATOCRIT 34.3 % (36.0-48.0); HEMOGLOBIN 11.2 g/dL (12.0-16.0); MEAN CORPUSCULAR HEMOGLOBIN 27.4 pg (28.0-32.0); MEAN CORPUSCULAR VOLUME 83.7 fL (81.0-99.0); PLATELET 456 x1000/uL (130-400)
[2017-12-24 16:00] VITALS: BP 97/59
[2017-12-24 20:00] VITALS: BP 103/62
[2017-12-25] VITALS: BP 97/58
[2017-12-25] MEDS: MORPHINE SULFATE 4 MG/ML CPJ (NOT FOR IM USE) IV PRN ×2 (01:15→05:41)
[2017-12-25 04:00] VITALS: BP 100/63
[2017-12-25] MEDS: PIPERACILLIN/TAZ 3.375G PREMIX 50 ML IV SCH ×2 (04:32→11:53)
[2017-12-25] MEDS: DEXT 5%/0.45% NACL 1000ML 1,000 ML IV SCH (04:32)
[2017-12-25 08:00] VITALS: BP 100/61
[2017-12-25] MEDS: ENOXAPARIN 40MG/0.4ML SYR SUBCUT SCH (09:01)
[2017-12-25] MEDS: FAMOTIDINE 20MG/2ML VIAL IV SCH (09:03)
[2017-12-25] MEDS: PREDNISONE 20MG TABLET PO SCH (09:05)
[2017-12-25 12:00] VITALS: BP 134/65
[2017-12-25 13:39] VITALS: BP 100/61
== END 2017-12-25 14:40 | disposition home or self-care (01) | DRG 445 ==
LOC: ER 19:30 → 6EST 12-22 04:13 → ENRESERV 12-22 07:46
PROVIDERS: ADMIT Internal Medicine; ATTEND Internal Medicine
DX: K80.00 Calculus of gallbladder with acute cholecystitis without obstruction (principal); E44.0 Moderate protein-calorie malnutrition; K76.0 Fatty (change of) liver, not elsewhere classified; K51.911 Ulcerative colitis, unspecified with rectal bleeding; D64.9 Anemia, unspecified; Z68.27 Body mass index [BMI] 27.0-27.9, adult
CPT/HCPCS: 36415; 74181; 76705; 80053; 80076; 80305; 81003; 83036; 83690; 85025; 85027; 87077; 87086; 87186; 93970; 99285; J1650; J2270; J2405; J2543; J3490; J7030; J7512

== ENCOUNTER 2017-12-30 03:44 | Inpatient (IN) | payer OTHER, MEDICAID ==
[~2017-12-30] VITALS: Ht 162.6 cm; Wt 59.0 kg
[~2017-12-30 03:44] MED LIST changes: +P20 PO; -PRED10TA23 PO
[2017-12-30 05:47] LABS: CHLORIDE 106 mEq/L (98-107); INR 1.1; PROTHROMBIN TIME 11.4 sec (9.4-11.6)
[2017-12-30 05:59] LABS: BASOPHILS % 1.4 % (0.0-2.0); HEMATOCRIT. 30.4 % (36.0-48.0); HEMOGLOBIN. 10.2 g/dL (12.0-16.0); LYMPHOCYTES % 22.1 % (20.0-50.0); MEAN CORPUSCULAR VOLUME 83.1 fL (81.0-99.0); MEAN PLATELET VOLUME 7.2 fl (7.4-10.4); MONOCYTES % 6.8 % (2.0-8.0); NEUTROPHILS % 67.7 % (40.0-76.0); PLATELET 419 x1000/uL (130-400); RED BLOOD CELL COUNT 3.66 mill/uL (4.2-5.4); RED CELL DISTRIBUTION WIDTH 15.8 % (11.6-14.6)
[2017-12-30 06:26] LABS: CLARITY URINE TURBID (CLEAR); COLOR URINE DARK YELLOW (YELLOW); KETONES URINE NEGATIVE (NEGATIVE); LEUKOCYTE ESTERASE URINE NEGATIVE (NEGATIVE); NITRITE URINE NEGATIVE (NEGATIVE); OCCULT BLOOD URINE NEGATIVE (NEGATIVE); PROTEIN URINE TRACE (NEGATIVE); SPECIFIC GRAVITY URINE 1.036 (1.005-1.030)
[2017-12-30] MEDS ORDERED: SODIUM CHLORIDE 0.9% 1,000 ML IV ONE (06:39)
[2017-12-30] MEDS ORDERED: ONDANSETRON HCL 4MG/2ML VIAL IV STA (06:39)
[2017-12-30] MEDS ORDERED: MORPHINE SULFATE 4 MG/ML CPJ (NOT FOR IM USE) IV STA (06:39)
[2017-12-30] MEDS ORDERED: ONDANSETRON HCL 4MG/2ML VIAL IV PRN (10:15)
[2017-12-30] MEDS ORDERED: ACETAMINOPHEN 325MG TABLET PO PRN (10:15)
[2017-12-30] MEDS ORDERED: NA PHOS,M-B/NA PHOS,DI-BA ENEMA 118ML PR PRN (10:15)
[2017-12-30] MEDS ORDERED: NITROGLYCERIN 0.4MG TABLET SL SL PRN (10:15)
[2017-12-30] MEDS ORDERED: GUAIFENESIN 200MG/10ML SUGAR FREE UDC PO PRN (10:15)
[2017-12-30] MEDS ORDERED: MAGNESIUM/ALUMINUM HYDROXIDE/SIMETHICONE 30ML UDC PO PRN (10:15)
[2017-12-30] MEDS ORDERED: CLONIDINE 0.1MG TABLET PO PRN (10:15)
[2017-12-30] MEDS ORDERED: DOCUSATE SODIUM 100MG CAPSULE PO PRN (10:15)
[2017-12-30] MEDS ORDERED: LORAZEPAM 0.5MG TABLET PO PRN (10:15)
[2017-12-30] MEDS ORDERED: DIPHENHYDRAMINE 50MG/ML VIAL IV PRN (10:15)
[2017-12-30] MEDS ORDERED: IPRATROPIUM/ALBUTEROL 0.5-3(2.5)MG/3ML NEB INH PRN (10:15)
[2017-12-30] MEDS: KETOROLAC 15MG/ML VIAL IV PRN ×2 (12:16→20:54)
[2017-12-30 18:52] VITALS: BP 118/72
[2017-12-30 20:00] VITALS: BP 95/60
[2017-12-30 20:07] VITALS: BP 123/70
[2017-12-30] MEDS: DEXT 5%/0.45% NACL 1000ML 1,000 ML IV SCH (20:53)
[2017-12-30] MEDS ORDERED: ZOLPIDEM TARTRATE 5MG TABLET PO PRN (21:00)
[2017-12-30] MEDS: LEVOFLOXACIN 500MG PREMIX 100 ML IV SCH (21:58)
[2017-12-30] MEDS: METRONIDAZOLE 500 MG PREMIX 100 ML IV SCH (22:42)
[2017-12-30] MEDS: MORPHINE SULFATE 4 MG/ML CPJ (NOT FOR IM USE) IV PRN (23:14)
[2017-12-31] VITALS: BP 102/64
[2017-12-31 04:00] VITALS: BP 100/59
[2017-12-31] MEDS: MORPHINE SULFATE 4 MG/ML CPJ (NOT FOR IM USE) IV PRN ×2 (05:27→19:56)
[2017-12-31] MEDS: METRONIDAZOLE 500 MG PREMIX 100 ML IV SCH ×3 (05:33→22:31)
[2017-12-31 08:00] VITALS: BP_SYST 171; BP_SYST 91; BP_DIAS 50; BP_DIAS 89
[2017-12-31 09:27] LABS: *AMPHETAMINES SCREEN URINE NEGATIVE (NEGATIVE); *BARBITURATES SCREEN URINE NEGATIVE (NEGATIVE); *BENZODIAZEPINES SCREEN URINE NEGATIVE (NEGATIVE); *COCAINE SCREEN URINE NEGATIVE (NEGATIVE); CANNABINOID URINE SCREEN NEGATIVE (NEGATIVE); METHADONE URINE SCREEN NEGATIVE (NEGATIVE)
[2017-12-31 09:29] LABS: PHENCYCLIDINE URINE SCREEN NEGATIVE (NEGATIVE)
[2017-12-31 10:15] LABS: OPIATES URINE SCREEN PRESUMTIVE POSITIVE (NEGATIVE)
[2017-12-31 12:00] VITALS: BP 109/76
[2017-12-31] MEDS: KETOROLAC 15MG/ML VIAL IV PRN (12:14)
[2017-12-31 16:00] VITALS: BP 98/59
[2017-12-31 20:00] VITALS: BP 104/76
[2017-12-31] MEDS: LEVOFLOXACIN 500MG PREMIX 100 ML IV SCH (20:55)
[2018-01-01] VITALS: BP 100/55
[2018-01-01] MEDS: KETOROLAC 15MG/ML VIAL IV PRN ×2 (01:54→14:42)
[2018-01-01 04:00] VITALS: BP 147/83
[2018-01-01] MEDS: DEXT 5%/0.45% NACL 1000ML 1,000 ML IV SCH ×2 (05:27→16:54)
[2018-01-01] MEDS: METRONIDAZOLE 500 MG PREMIX 100 ML IV SCH ×2 (06:11→14:41)
[2018-01-01 08:00] VITALS: BP 92/58
[2018-01-01 12:00] VITALS: BP 96/52
[2018-01-01 16:00] VITALS: BP 103/57
[2018-01-01] MEDS: LEVOFLOXACIN 500MG TABLET PO SCH (16:43)
[2018-01-01 20:00] VITALS: BP 115/69
[2018-01-01] MEDS: MORPHINE SULFATE 4 MG/ML CPJ (NOT FOR IM USE) IV PRN (20:41)
[2018-01-01] MEDS: METRONIDAZOLE 500MG TABLET PO SCH (21:36)
[2018-01-02] VITALS: BP 105/61
[2018-01-02 04:00] VITALS: BP 95/42
[2018-01-02] MEDS: METRONIDAZOLE 500MG TABLET PO SCH ×2 (06:07→13:47)
[2018-01-02] MEDS: DEXT 5%/0.45% NACL 1000ML 1,000 ML IV SCH ×2 (06:08→11:36)
[2018-01-02 08:00] VITALS: BP 101/52
[2018-01-02] MEDS: LEVOFLOXACIN 500MG TABLET PO SCH (10:38)
[2018-01-02 12:00] VITALS: BP 108/70
[2018-01-02] MEDS: MORPHINE SULFATE 4 MG/ML CPJ (NOT FOR IM USE) IV PRN (12:40)
[2018-01-02 16:00] VITALS: BP 105/61
[2018-01-02 17:29] VITALS: BP 105/61
== END 2018-01-02 18:20 | disposition home or self-care (01) | DRG 445 ==
LOC: ER 03:44 → 6EST 08:48 → EDBEDREQTM 08:53 → EDBEDREQ 08:53 → ENRESERV 16:00
PROVIDERS: ADMIT Internal Medicine; ATTEND Internal Medicine
DX: K80.00 Calculus of gallbladder with acute cholecystitis without obstruction (principal); E44.0 Moderate protein-calorie malnutrition; K51.90 Ulcerative colitis, unspecified, without complications; D64.9 Anemia, unspecified; Z79.899 Other long term (current) drug therapy; R74.0 Nonspecific elevation of levels of transaminase and lactic acid dehydrogenase [LDH]; Z68.22 Body mass index [BMI] 22.0-22.9, adult
CPT/HCPCS: 36415; 71045; 74181; 76705; 78227; 80053; 80305; 81003; 82270; 83690; 85025; 85610; 93005; 96365; 96375; 99285; A9537; J1885; J1956; J2270; J2405; J3490; J7030

== ENCOUNTER 2018-01-08 00:48 | Emergency (ER) | payer OTHER, MEDICAID ==
[~2018-01-08] VITALS: Ht 165.1 cm; Wt 61.0 kg
[2018-01-08] MEDS ORDERED: FAMOTIDINE 20MG/2ML VIAL IV STA (07:08)
[2018-01-08] MEDS ORDERED: ONDANSETRON HCL 4MG/2ML VIAL IV STA (07:08)
[2018-01-08] MEDS ORDERED: SODIUM CHLORIDE 0.9% 1,000 ML IV ONE (07:08)
[2018-01-08] MEDS ORDERED: MORPHINE SULFATE 4 MG/ML CPJ (NOT FOR IM USE) IV ONE ×2 (07:30→11:15)
[2018-01-08] MEDS ORDERED: DIATR MEGLU/DIATRIZOATE SOLN 30ML ONE (07:30)
[2018-01-08] MEDS ORDERED: IOHEXOL-300 100 ML BOTTLE ONE (07:31)
[2018-01-08 07:38] LABS: BASOPHILS % 1.8 % (0.0-2.0); EOSINOPHILS % 3.3 % (0.0-5.0); HEMOGLOBIN. 9.5 g/dL (12.0-16.0); LYMPHOCYTES % 34.2 % (20.0-50.0); MEAN CORPUSCULAR HEMOGLOBIN 27.1 pg (28.0-32.0); MEAN CORPUSCULAR VOLUME 82.5 fL (81.0-99.0); MEAN PLATELET VOLUME 7.3 fl (7.4-10.4); MONOCYTES % 12.4 % (2.0-8.0); NEUTROPHILS % 48.3 % (40.0-76.0); PLATELET 443 x1000/uL (130-400); RED BLOOD CELL COUNT 3.51 mill/uL (4.2-5.4)
[2018-01-08 07:39] LABS: CHLORIDE 108 mEq/L (98-107)
[2018-01-08 07:43] LABS: CLARITY URINE CLOUDY (CLEAR); COLOR URINE YELLOW (YELLOW); KETONES URINE NEGATIVE (NEGATIVE); LEUKOCYTE ESTERASE URINE 2+ (NEGATIVE); NITRITE URINE NEGATIVE (NEGATIVE); OCCULT BLOOD URINE TRACE (NEGATIVE); PROTEIN URINE NEGATIVE (NEGATIVE); SPECIFIC GRAVITY URINE 1.024 (1.005-1.030); UROBILINOGEN URINE 0.2 E.U./dL (0.2-1.0)
[2018-01-08 07:47] LABS: INR 1.1; PARTIAL THROMBOPLASTIN TIME 26.1 sec (23.4-31.0)
[2018-01-08 07:59] LABS: *AMPHETAMINES SCREEN URINE NEGATIVE (NEGATIVE); *BARBITURATES SCREEN URINE NEGATIVE (NEGATIVE); *BENZODIAZEPINES SCREEN URINE NEGATIVE (NEGATIVE); CANNABINOID URINE SCREEN NEGATIVE (NEGATIVE); METHADONE URINE SCREEN NEGATIVE (NEGATIVE); OPIATES URINE SCREEN NEGATIVE (NEGATIVE); PHENCYCLIDINE URINE SCREEN NEGATIVE (NEGATIVE)
[2018-01-08 08:00] LABS: *COCAINE SCREEN URINE NEGATIVE (NEGATIVE)
[2018-01-08] MEDS ORDERED: CEFTRIAXONE 1 G PREMIX 50 ML IV ONE (11:00)
[2018-01-08] MEDS ORDERED: ONDANSETRON HCL 4MG/2ML VIAL IV ONE (11:15)
[2018-01-08 12:10] VITALS: BP 104/64
== END 2018-01-08 12:12 | disposition home or self-care (01) ==
LOC: ER 00:48
DX: K52.9 Noninfective gastroenteritis and colitis, unspecified (principal); N39.0 Urinary tract infection, site not specified; N83.201 Unspecified ovarian cyst, right side
CPT/HCPCS: 36415; 74177; 76705; 80053; 80305; 81003; 81025; 83690; 85025; 85610; 85730; 87086; 96361; 96365; 96375; 96376; 99285; J0696; J2270; J2405; J3490; J7030; Q9967; Z7610; Q9963

== ENCOUNTER 2018-01-12 19:48 | Emergency (ER) | payer OTHER, MEDICAID ==
[~2018-01-12] VITALS: Ht 162.6 cm; Wt 59.0 kg
[2018-01-12 21:02] LABS: BASOPHILS % 1.3 % (0.0-2.0); EOSINOPHILS % 2.1 % (0.0-5.0); HEMATOCRIT. 32.6 % (36.0-48.0); HEMOGLOBIN. 10.7 g/dL (12.0-16.0); LYMPHOCYTES % 29.1 % (20.0-50.0); MEAN CORPUSCULAR HEMOGLOBIN 27.2 pg (28.0-32.0); MEAN CORPUSCULAR VOLUME 82.9 fL (81.0-99.0); MEAN PLATELET VOLUME 7.4 fl (7.4-10.4); MONOCYTES % 7.5 % (2.0-8.0); PLATELET 509 x1000/uL (130-400); RED BLOOD CELL COUNT 3.94 mill/uL (4.2-5.4); RED CELL DISTRIBUTION WIDTH 16.4 % (11.6-14.6)
[2018-01-12 21:05] LABS: CHLORIDE 109 mEq/L (98-107)
[2018-01-12 21:08] LABS: PROTHROMBIN TIME 10.8 sec (9.4-11.6)
[2018-01-12 21:18] LABS: HCG SCREEN NEGATIVE
[2018-01-13] MEDS ORDERED: MORPHINE SULFATE 4 MG/ML CPJ (NOT FOR IM USE) IV STA (00:46)
[2018-01-13] MEDS ORDERED: ONDANSETRON 4MG ODT PO STA (00:46)
[2018-01-13] MEDS ORDERED: SODIUM CHLORIDE 0.9% 1,000 ML IV ONE (00:46)
[2018-01-13] MEDS ORDERED: FAMOTIDINE 20MG/2ML VIAL IV STA (00:46)
[2018-01-13 06:20] VITALS: BP 123/72
== END 2018-01-13 06:20 | disposition home or self-care (01) ==
LOC: ER 21:18
DX: R10.30 Lower abdominal pain, unspecified (principal)
CPT/HCPCS: 36415; 80053; 83690; 84703; 85025; 85610; 96361; 96374; 96375; 99284; J2270; J3490; J7030; Q0162; Z7610

== ENCOUNTER 2018-01-24 18:13 | Inpatient (IN) | payer OTHER, MEDICAID ==
[~2018-01-24] VITALS: Ht 162.6 cm; Wt 59.0 kg
[2018-01-25] MEDS ORDERED: SODIUM CHLORIDE 0.9% 1,000 ML IV ONE (01:18)
[2018-01-25] MEDS ORDERED: MORPHINE SULFATE 4 MG/ML CPJ (NOT FOR IM USE) IV STA (01:18)
[2018-01-25] MEDS ORDERED: ONDANSETRON HCL 4MG/2ML VIAL IV STA (01:18)
[2018-01-25 02:49] LABS: BASOPHILS % 0.2 % (0.0-2.0); EOSINOPHILS % 2.5 % (0.0-5.0); HEMOGLOBIN. 10.5 g/dL (12.0-16.0); LYMPHOCYTES % 35.6 % (20.0-50.0); MEAN CORPUSCULAR HEMOGLOBIN 27.3 pg (28.0-32.0); MEAN CORPUSCULAR VOLUME 83.4 fL (81.0-99.0); MEAN PLATELET VOLUME 7.5 fl (7.4-10.4); MONOCYTES % 9.4 % (2.0-8.0); NEUTROPHILS % 52.3 % (40.0-76.0); PLATELET 394 x1000/uL (130-400); RED BLOOD CELL COUNT 3.83 mill/uL (4.2-5.4); RED CELL DISTRIBUTION WIDTH 15.9 % (11.6-14.6)
[2018-01-25 02:58] LABS: CHLORIDE 107 mEq/L (98-107)
[2018-01-25] MEDS ORDERED: ONDANSETRON HCL 4MG/2ML VIAL IV ONE (03:30)
[2018-01-25] MEDS ORDERED: MORPHINE SULFATE 2 MG/ML CPJ (NOT FOR IM USE) IV ONE (03:30)
[2018-01-25 04:54] LABS: CLARITY URINE CLOUDY (CLEAR); COLOR URINE YELLOW (YELLOW); KETONES URINE NEGATIVE (NEGATIVE); LEUKOCYTE ESTERASE URINE NEGATIVE (NEGATIVE); NITRITE URINE NEGATIVE (NEGATIVE); OCCULT BLOOD URINE NEGATIVE (NEGATIVE); PROTEIN URINE NEGATIVE (NEGATIVE); SPECIFIC GRAVITY URINE 1.028 (1.005-1.030); UROBILINOGEN URINE 0.2 E.U./dL (0.2-1.0)
[2018-01-25] MEDS: MORPHINE SULFATE 4 MG/ML CPJ (NOT FOR IM USE) IV NR ×2 (05:35→05:51)
[2018-01-25] MEDS: MORPHINE SULFATE 4 MG/ML CPJ (NOT FOR IM USE) IV PRN ×2 (12:22→16:13)
[2018-01-25] MEDS: SODIUM CHLORIDE 0.9% 1,000 ML IV SCH (12:22)
[2018-01-25] MEDS ORDERED: DIPHENHYDRAMINE 50MG/ML VIAL IV PRN (13:30)
[2018-01-25] MEDS ORDERED: ACETAMINOPHEN 325MG TABLET PO PRN (13:30)
[2018-01-25 15:45] VITALS: BP 114/74
[2018-01-25] MEDS ORDERED: METHYLPREDNISOLONE SOD SUCC 125 MG/2 ML VIAL IV SCH (16:00)
[2018-01-25 17:00] VITALS: BP 110/66
[2018-01-25 20:00] VITALS: BP 104/57
[2018-01-25] MEDS: FAMOTIDINE 20MG/2ML VIAL IV SCH (20:50)
[2018-01-25] MEDS: MESALAMINE 400 MG CAPSULE.DR PO SCH (20:50)
[2018-01-25] MEDS: PREDNISONE 20MG TABLET PO SCH (20:51)
[2018-01-26] VITALS: BP 116/62
[2018-01-26] MEDS: MORPHINE SULFATE 4 MG/ML CPJ (NOT FOR IM USE) IV PRN ×3 (00:24→20:15)
[2018-01-26 04:00] VITALS: BP 96/47
[2018-01-26 08:00] VITALS: BP 115/68
[2018-01-26 08:11] LABS: BASOPHILS % 0.2 % (0.0-2.0); HEMATOCRIT. 30.7 % (36.0-48.0); HEMOGLOBIN. 10.1 g/dL (12.0-16.0); MEAN CORPUSCULAR HEMOGLOBIN 27.1 pg (28.0-32.0); MEAN CORPUSCULAR VOLUME 82.1 fL (81.0-99.0); MEAN PLATELET VOLUME 7.7 fl (7.4-10.4); MONOCYTES % 2.7 % (2.0-8.0); NEUTROPHILS % 85.1 % (40.0-76.0); PLATELET 403 x1000/uL (130-400); RED BLOOD CELL COUNT 3.74 mill/uL (4.2-5.4); RED CELL DISTRIBUTION WIDTH 15.2 % (11.6-14.6)
[2018-01-26] MEDS: SODIUM CHLORIDE 0.9% 1,000 ML IV SCH ×2 (08:30→18:03)
[2018-01-26] MEDS: PREDNISONE 20MG TABLET PO SCH (08:31)
[2018-01-26] MEDS: MESALAMINE 400 MG CAPSULE.DR PO SCH ×3 (08:32→16:00)
[2018-01-26] MEDS: FAMOTIDINE 20MG/2ML VIAL IV SCH ×2 (08:32→20:14)
[2018-01-26] MEDS: ONDANSETRON HCL 4MG/2ML VIAL IV PRN ×2 (08:37→12:18)
[2018-01-26 08:40] LABS: CHLORIDE 106 mEq/L (98-107)
[2018-01-26 08:44] LABS: PHOSPHORUS 3.3 mg/dL (2.5-4.9)
[2018-01-26 12:00] VITALS: BP 118/59
[2018-01-26 16:00] VITALS: BP 112/58
[2018-01-26 20:00] VITALS: BP 111/65
[2018-01-27] VITALS: BP 111/63
[2018-01-27] MEDS: MORPHINE SULFATE 4 MG/ML CPJ (NOT FOR IM USE) IV PRN ×3 (03:05→23:40)
[2018-01-27 04:00] VITALS: BP 112/71
[2018-01-27] MEDS: SODIUM CHLORIDE 0.9% 1,000 ML IV SCH ×2 (06:55→23:40)
[2018-01-27 08:00] VITALS: BP 104/65
[2018-01-27] MEDS: PREDNISONE 20MG TABLET PO SCH (09:36)
[2018-01-27] MEDS: FAMOTIDINE 20MG/2ML VIAL IV SCH ×2 (09:36→21:09)
[2018-01-27] MEDS: MESALAMINE 400 MG CAPSULE.DR PO SCH ×3 (09:37→17:14)
[2018-01-27] MEDS: ONDANSETRON HCL 4MG/2ML VIAL IV PRN (09:58)
[2018-01-27 12:00] VITALS: BP 107/64
[2018-01-27 16:00] VITALS: BP 103/55
[2018-01-27] MEDS ORDERED: LOPERAMIDE HCL 2MG CAPSULE PO PRN (18:30)
[2018-01-27 20:00] VITALS: BP 98/47
[2018-01-27] MEDS: HYDROCODONE/ACETAMINOPHEN 5/325MG TABLET PO PRN (21:06)
[2018-01-28] MEDS: MORPHINE SULFATE 4 MG/ML CPJ (NOT FOR IM USE) IV PRN ×3 (03:18→15:39)
[2018-01-28 04:00] VITALS: BP 123/75
[2018-01-28] MEDS: HYDROCODONE/ACETAMINOPHEN 5/325MG TABLET PO PRN ×4 (05:27→23:27)
[2018-01-28 08:00] VITALS: BP 109/54
[2018-01-28] MEDS: MESALAMINE 400 MG CAPSULE.DR PO SCH ×3 (09:23→17:20)
[2018-01-28] MEDS: PREDNISONE 20MG TABLET PO SCH (09:23)
[2018-01-28] MEDS: FAMOTIDINE 20MG/2ML VIAL IV SCH (09:24)
[2018-01-28] MEDS: SODIUM CHLORIDE 0.9% 1,000 ML IV SCH (09:40)
[2018-01-28 12:00] VITALS: BP 112/68
[2018-01-28 16:00] VITALS: BP 114/67
[2018-01-29] VITALS: BP 115/72
[2018-01-29] MEDS ORDERED: P20 PO (01:09)
[2018-01-29 01:14] VITALS: BP 115/72
[2018-01-29] MEDS ORDERED: PREDNISONE 20MG TABLET PO SCH (09:00)
== END 2018-01-29 02:20 | disposition home or self-care (01) | DRG 387 ==
LOC: ER 18:13 → 6EST 01-25 04:52 → EDBEDREQ 01-25 04:57 → EDBEDREQTM 01-25 04:57
PROVIDERS: ADMIT Internal Medicine; ATTEND Internal Medicine
DX: K51.90 Ulcerative colitis, unspecified, without complications (principal); D64.9 Anemia, unspecified; Z91.19 Patient's noncompliance with other medical treatment and regimen
CPT/HCPCS: 36415; 80053; 80076; 81003; 81025; 82248; 82270; 83690; 83735; 84100; 85025; 87015; 87045; 87427; 87449; 87493; 96361; 96374; 96375; 96376; 99285; C1893; J2270; J2405; J2930; J3490; J7030; J7512

== ENCOUNTER 2018-02-01 03:06 | Emergency (ER) | payer OTHER, MEDICAID ==
[~2018-02-01] VITALS: Ht 154.9 cm; Wt 59.0 kg
[2018-02-01] MEDS ORDERED: SODIUM CHLORIDE 0.9% 1,000 ML IV ONE (05:50)
[2018-02-01] MEDS ORDERED: KETOROLAC 30MG/ML VIAL IV STA (05:50)
[2018-02-01] MEDS ORDERED: FAMOTIDINE 20MG/2ML VIAL IV STA (05:50)
[2018-02-01] MEDS ORDERED: ONDANSETRON HCL 4MG/2ML VIAL IV STA (05:50)
[2018-02-01 05:54] LABS: CLARITY URINE CLEAR (CLEAR); COLOR URINE YELLOW (YELLOW); KETONES URINE NEGATIVE (NEGATIVE); LEUKOCYTE ESTERASE URINE NEGATIVE (NEGATIVE); NITRITE URINE NEGATIVE (NEGATIVE); OCCULT BLOOD URINE NEGATIVE (NEGATIVE); PROTEIN URINE NEGATIVE (NEGATIVE); SPECIFIC GRAVITY URINE 1.022 (1.005-1.030); UROBILINOGEN URINE 0.2 E.U./dL (0.2-1.0)
[2018-02-01 06:30] LABS: BASOPHILS % 0.9 % (0.0-2.0); CHLORIDE 102 mEq/L (98-107); EOSINOPHILS % 1.6 % (0.0-5.0); HEMATOCRIT. 30.8 % (36.0-48.0); HEMOGLOBIN. 10.2 g/dL (12.0-16.0); LYMPHOCYTES % 22.1 % (20.0-50.0); MEAN CORPUSCULAR HEMOGLOBIN 26.8 pg (28.0-32.0); MEAN PLATELET VOLUME 7.2 fl (7.4-10.4); MONOCYTES % 9.8 % (2.0-8.0); NEUTROPHILS % 65.6 % (40.0-76.0); PLATELET 450 x1000/uL (130-400); RED CELL DISTRIBUTION WIDTH 15.4 % (11.6-14.6)
[2018-02-01 06:32] LABS: PROTHROMBIN TIME 10.7 sec (9.4-11.6)
[2018-02-01 06:35] LABS: ETHANOL BLOOD < 10 mg/dL
[2018-02-01] MEDS ORDERED: MORPHINE SULFATE 4 MG/ML CPJ (NOT FOR IM USE) IV ONE (07:30)
[2018-02-01 09:21] VITALS: BP 122/61
== END 2018-02-01 09:25 | disposition home or self-care (01) ==
LOC: ER 03:06
DX: K51.90 Ulcerative colitis, unspecified, without complications (principal); R07.9 Chest pain, unspecified
CPT/HCPCS: 36415; 80053; 81003; 81025; 83690; 85025; 85610; 93005; 96361; 96374; 96375; 99285; G0482; J1885; J2270; J2405; J3490; J7030; Z7610

== ENCOUNTER 2018-03-05 03:49 | Emergency (ER) | payer OTHER, MEDICAID ==
[~2018-03-05] VITALS: Ht 162.6 cm; Wt 64.0 kg
[2018-03-05 03:56] VITALS: BP 124/78
== END 2018-03-05 08:00 | disposition left against medical advice (07) ==
LOC: ER 03:49
DX: R10.30 Lower abdominal pain, unspecified (principal); R10.11 Right upper quadrant pain; Z53.21 Procedure and treatment not carried out due to patient leaving prior to being seen by health care provider

== ENCOUNTER 2018-03-06 19:05 | Inpatient (IN) | payer OTHER, MEDICAID ==
[~2018-03-06] VITALS: Ht 162.6 cm; Wt 63.5 kg
[2018-03-07] MEDS ORDERED: SODIUM CHLORIDE 0.9% 1,000 ML IV ONE (01:50)
[2018-03-07] MEDS ORDERED: KETOROLAC 30MG/ML VIAL IV STA (01:50)
[2018-03-07] MEDS ORDERED: FAMOTIDINE 20MG/2ML VIAL IV STA (01:50)
[2018-03-07] MEDS ORDERED: ONDANSETRON HCL 4MG/2ML VIAL IV STA (01:50)
[2018-03-07] MEDS ORDERED: MAGNESIUM/ALUMINUM HYDROXIDE/SIMETHICONE 30ML UDC PO STA (01:50)
[2018-03-07 01:52] LABS: COLOR URINE YELLOW (YELLOW); KETONES URINE NEGATIVE (NEGATIVE); LEUKOCYTE ESTERASE URINE 2+ (NEGATIVE); NITRITE URINE NEGATIVE (NEGATIVE); OCCULT BLOOD URINE NEGATIVE (NEGATIVE); PROTEIN URINE TRACE (NEGATIVE); SPECIFIC GRAVITY URINE 1.031 (1.005-1.030); UROBILINOGEN URINE 0.2 E.U./dL (0.2-1.0)
[2018-03-07] MEDS ORDERED: PREDNISONE 20MG TABLET PO ONE (02:00)
[2018-03-07 02:19] LABS: BASOPHILS % 1.2 % (0.0-2.0); EOSINOPHILS % 2.2 % (0.0-5.0); HEMATOCRIT. 27.8 % (36.0-48.0); HEMOGLOBIN. 9.1 g/dL (12.0-16.0); LYMPHOCYTES % 29.2 % (20.0-50.0); MEAN PLATELET VOLUME 6.8 fl (7.4-10.4); MONOCYTES % 7.8 % (2.0-8.0); NEUTROPHILS % 59.6 % (40.0-76.0); PLATELET 493 x1000/uL (130-400); RED BLOOD CELL COUNT 3.51 mill/uL (4.2-5.4); RED CELL DISTRIBUTION WIDTH 15.3 % (11.6-14.6)
[2018-03-07 02:20] LABS: CHLORIDE 109 mEq/L (98-107)
[2018-03-07 02:22] LABS: INR 1.1; PROTHROMBIN TIME 11.3 sec (9.4-11.6)
[2018-03-07] MEDS ORDERED: MORPHINE SULFATE 4 MG/ML CPJ (NOT FOR IM USE) IV ONE (03:00)
[2018-03-07] MEDS ORDERED: CEFTRIAXONE 1 G PREMIX 50 ML IV ONE (03:00)
[2018-03-07] MEDS ORDERED: ONDANSETRON HCL 4MG/2ML VIAL IV PRN (09:15)
[2018-03-07 09:33] VITALS: BP 112/65
[2018-03-07 09:37] VITALS: BP 112/65
[2018-03-07] MEDS ORDERED: ONDANSETRON 4MG ODT PO PRN (10:00)
[2018-03-07] MEDS: MORPHINE SULFATE 4 MG/ML CPJ (NOT FOR IM USE) IV PRN ×3 (10:09→19:55)
[2018-03-07] MEDS: PREDNISONE 20MG TABLET PO SCH (10:10)
[2018-03-07] MEDS: DEXT 5%/0.45% NACL 1000ML 1,000 ML IV SCH ×2 (10:32→20:02)
[2018-03-07 12:00] VITALS: BP 117/78
[2018-03-07 16:00] VITALS: BP 106/62
[2018-03-07] MEDS: MESALAMINE 400 MG CAPSULE.DR PO SCH (16:22)
[2018-03-07 20:00] VITALS: BP 135/57
[2018-03-08] VITALS (7 sets, daily range): BP systolic 104–127; BP diastolic 51–81
[2018-03-08] MEDS: MORPHINE SULFATE 4 MG/ML CPJ (NOT FOR IM USE) IV PRN ×4 (01:13→16:09)
[2018-03-08] MEDS ORDERED: CEFTRIAXONE 1 G PREMIX 50 ML IV SCH (03:00)
[2018-03-08] MEDS: DEXT 5%/0.45% NACL 1000ML 1,000 ML IV SCH (05:57)
[2018-03-08] MEDS: PREDNISONE 20MG TABLET PO SCH (08:56)
[2018-03-08] MEDS: MESALAMINE 400 MG CAPSULE.DR PO SCH ×3 (08:56→18:08)
[2018-03-08 10:40] LABS: HEMATOCRIT 28.2 % (36.0-48.0)
== END 2018-03-08 19:30 | disposition home or self-care (01) | DRG 385 ==
LOC: ER 19:05 → 8WST 03-07 03:05 → ENRESERV 03-07 07:05
PROVIDERS: ADMIT Internal Medicine; ATTEND Internal Medicine
DX: K51.911 Ulcerative colitis, unspecified with rectal bleeding (principal); E43 Unspecified severe protein-calorie malnutrition; E87.8 Other disorders of electrolyte and fluid balance, not elsewhere classified; N39.0 Urinary tract infection, site not specified; D53.9 Nutritional anemia, unspecified; Z79.899 Other long term (current) drug therapy; Z68.24 Body mass index [BMI] 24.0-24.9, adult; Z91.19 Patient's noncompliance with other medical treatment and regimen
CPT/HCPCS: 36415; 74018; 80053; 81003; 83690; 85014; 85018; 85025; 85044; 85610; 87086; 87493; 96361; 96365; 96375; 99285; J0696; J1885; J2270; J2405; J3490; J7030; J7512

== ENCOUNTER 2020-02-04 02:53 | Emergency (ER) | payer MEDICAID, OTHER ==
[~2020-02-04] VITALS: Ht 162.6 cm; Wt 82.0 kg
[2020-02-04 04:14] LABS: BASOPHILS % 1.3 % (0.0-2.0); HEMATOCRIT. 34.7 % (36.0-48.0); HEMOGLOBIN. 11.8 g/dL (12.0-16.0); LYMPHOCYTES % 29.2 % (20.0-50.0); MEAN CORPUSCULAR HEMOGLOBIN 28.9 pg (28.0-32.0); MEAN CORPUSCULAR VOLUME 85.2 fL (81.0-99.0); MEAN PLATELET VOLUME 7.5 fl (7.4-10.4); MONOCYTES % 7.5 % (2.0-8.0); PLATELET 419 x1000/uL (130-400); RED BLOOD CELL COUNT 4.07 mill/uL (4.2-5.4); RED CELL DISTRIBUTION WIDTH 14.1 % (11.6-14.6)
[2020-02-04 04:26] LABS: CHLORIDE 107 mEq/L (98-107)
[2020-02-04] MEDS ORDERED: HYDROCODONE/ACETAMINOPHEN 5/325MG TABLET PO ONE (04:30)
[2020-02-04 04:55] LABS: CLARITY URINE TURBID (CLEAR); COLOR URINE YELLOW (YELLOW); KETONES URINE NEGATIVE (NEGATIVE); LEUKOCYTE ESTERASE URINE 2+ (NEGATIVE); NITRITE URINE NEGATIVE (NEGATIVE); OCCULT BLOOD URINE NEGATIVE (NEGATIVE); PROTEIN URINE TRACE (NEGATIVE); SPECIFIC GRAVITY URINE 1.031 (1.005-1.030); UROBILINOGEN URINE 0.2 E.U./dL (0.2-1.0)
[2020-02-04] MEDS ORDERED: CEPHALEXIN 250MG CAPSULE PO ONE (05:15)
[2020-02-04] MEDS ORDERED: MORPHINE SULFATE 10 MG/ML CPJ IM ONE (05:45)
[2020-02-04 05:50] VITALS: BP 118/76
== END 2020-02-04 06:30 | disposition home or self-care (01) ==
LOC: ER 02:53
DX: K51.90 Ulcerative colitis, unspecified, without complications (principal); N39.0 Urinary tract infection, site not specified
CPT/HCPCS: 36415; 80053; 81003; 83690; 85025; 85651; 87077; 87086; 87186; 96372; 99283; J2270

== ENCOUNTER 2020-05-04 21:39 | Emergency (ER) | payer MEDICAID ==
[~2020-05-04] VITALS: Ht 162.6 cm; Wt 73.0 kg
[2020-05-05 00:23] LABS: BASOPHILS % 1.1 % (0.0-2.0); EOSINOPHILS % 1.3 % (0.0-5.0); HEMATOCRIT. 34.2 % (36.0-48.0); MEAN CORPUSCULAR HEMOGLOBIN 29.9 pg (28.0-32.0); MEAN CORPUSCULAR VOLUME 85.5 fL (81.0-99.0); MEAN PLATELET VOLUME 7.4 fl (7.4-10.4); NEUTROPHILS % 70.6 % (40.0-76.0); PLATELET 475 x1000/uL (130-400); RED CELL DISTRIBUTION WIDTH 13.8 % (11.6-14.6)
[2020-05-05 00:24] LABS: CHLORIDE 105 mEq/L (98-107)
[2020-05-05] MEDS ORDERED: KETOROLAC 60MG/2ML VIAL IM ONE (00:45)
[2020-05-05 00:58] LABS: PARTIAL THROMBOPLASTIN TIME 27.1 sec (23.4-31.0); PROTHROMBIN TIME 10.7 sec (9.6-11.0)
[2020-05-05 01:08] LABS: CLARITY URINE CLOUDY (CLEAR); COLOR URINE YELLOW (YELLOW); KETONES URINE 1+ (NEGATIVE); LEUKOCYTE ESTERASE URINE NEGATIVE (NEGATIVE); NITRITE URINE NEGATIVE (NEGATIVE); OCCULT BLOOD URINE 1+ (NEGATIVE); PH URINE 5.5 (4.5-8.0); PROTEIN URINE 1+ (NEGATIVE); SPECIFIC GRAVITY URINE 1.032 (1.005-1.030)
[2020-05-05] MEDS ORDERED: ACETAMINOPHEN 500MG TABLET PO ONE (02:00)
[2020-05-05 04:00] VITALS: BP 124/68
== END 2020-05-05 04:07 | disposition home or self-care (01) ==
LOC: ER 21:39
DX: S06.0X9A Concussion with loss of consciousness of unspecified duration, initial encounter (principal); Y08.89XA Assault by other specified means, initial encounter; Y07.03 Male partner, perpetrator of maltreatment and neglect; Y93.89 Activity, other specified; Y92.018 Other place in single-family (private) house as the place of occurrence of the external cause
CPT/HCPCS: 36415; 70450; 71045; 72125; 74176; 80053; 81003; 83690; 85025; 85610; 85730; 86850; 86900; 86901; 96372; 99285; J1885